=== PATIENT | male | born 1955 | race Asian ===

== ENCOUNTER 2022-08-12 03:48 | Emergency (ER) | payer OTHER ==
[~2022-08-12] VITALS: Ht 157.5 cm; Wt 60.0 kg
[2022-08-12 04:17] VITALS: BP 126/86
[2022-08-12] MEDS ORDERED: AMOX-277 PO (05:09)
[2022-08-12] MEDS ORDERED: PRED20TA2 PO (05:09)
[2022-08-12] MEDS ORDERED: cefTRIAXone SOD 1,000 MG VL IM ONE (05:15)
== END 2022-08-12 06:05 | disposition home or self-care (01) ==
LOC: ER 03:48
DX: J20.9 Acute bronchitis, unspecified (principal); E78.5 Hyperlipidemia, unspecified; I10 Essential (primary) hypertension; Z20.822 Contact with and (suspected) exposure to COVID-19
CPT/HCPCS: 36415; 71045; 87426; 87804; 96372; 99284; J0696

== ENCOUNTER 2022-09-16 21:07 | Emergency (ER) | payer OTHER ==
[~2022-09-16] VITALS: Ht 170.2 cm; Wt 66.1 kg
[~2022-09-16 21:07] MED LIST: AMOX-277 PO; PRED20TA2 PO
[2022-09-17] MEDS ORDERED: OMEP20TA PO (00:41)
[2022-09-17] MEDS ORDERED: MAALOX PLUS or MAALOX 30 ML PO ONE (00:45)
[2022-09-17] MEDS ORDERED: LIDOCAINE VISCOUS 2% 15ML UD PO ONE (00:45)
[2022-09-17 01:15] VITALS: BP 129/90
== END 2022-09-17 01:20 | disposition home or self-care (01) ==
LOC: ER 21:07
DX: K21.00 Gastro-esophageal reflux disease with esophagitis, without bleeding (principal); E78.5 Hyperlipidemia, unspecified; I10 Essential (primary) hypertension; Z88.1 Allergy status to other antibiotic agents

== ENCOUNTER 2024-07-05 08:56 | Emergency (ER) | payer OTHER ==
[~2024-07-05] VITALS: Ht 170.2 cm; Wt 65.0 kg
[~2024-07-05 08:56] MED LIST changes: -AMOX-277 PO; +AMOX875T4 PO; +OMEP20TA PO
--- NOTE | 2024-07-05 09:33 | DVH ---
CHEST RADIOGRAPH Indication: cough Technique: Frontal and lateral view of the chest was obtained Comparison: None FINDINGS: Lines and Tubes: None Lungs: Clear Pleura: No effusion. No pneumothorax. Cardiomediastinal contours: Unremarkable Bones: Unremarkable IMPRESSION: No evidence of acute disease.
[2024-07-05 10:26] VITALS: BP 106/79; PULSE 86; RESP 20; TEMP 97; O2SAT 93
[2024-07-05 11:04] LABS: COVID19 ANTIGEN SOFIA FIA NEGATIVE (NEGATIVE)
[2024-07-05 11:05] LABS: Rapid Influenza A Positive (Negative); Rapid Influenza B Negative (Negative)
[2024-07-05] MEDS ORDERED: OSEL75CA5 PO (11:35)
[2024-07-05] MEDS ORDERED: PROM1SOL4 PO (11:35)
[2024-07-05] MEDS ORDERED: ACET500T58 PO (11:35)
[2024-07-05] MEDS ORDERED: IBUP-1456 PO (11:35)
--- NOTE | 2024-07-05 11:35 | ED.PDOC ---
History of Present Illness HPI Comments 69-year-old male with a history of hypertension, hyperlipidemia, enlarged prostate presents with for same symptoms of myalgia, runny nose, nonproductive cough for two days. Denies persistent chest pain, shortness of breath, leg swelling Denies history of asthma nor any breathing conditions Denies history of pneumonia Denies recent international travel parents Chief Complaint: Flu like Time Seen by MD: 09:11 Past Medical History PAST MEDICAL HISTORY: High Lipids, HTN Surgical History: Denies all surgeries Family History Family History: Reviewed,noncontributory to illness Social History Smoker: Non-Smoker Alcohol: Denies ETOH Use Drugs: Denies Drug Use Lives In: Home X-Ray, Labs, Meds, VS Vital Signs Date Time Temp Pulse Resp B/P (MAP) Pulse Ox O2 Delivery O2 Flow Rate FiO2 07/05/24 10:26 86 20 93 Room Air 07/05/24 10:26 97.0 86 20 106/79 (88) 93 97.0 07/05/24 09:09 97.6 57 87 135/65 (88) 98 Lab Test 07/05/24 09:18 Range/Units Influenza Type A Antigen Positive Negative Influenza Type B Antigen Negative Negative SARS-CoV-2 Antigen (Rapid) Negative NEGATIVE Departure 1 Departure Time of Disposition: 11:33 Impression: Primary Impression: Influenza A Disposition: 01 HOME / SELF CARE / HOMELESS Condition: Stable e-Prescriptions Promethazine-Dm (Promethazine Dm 6.25-15 mg/5Ml) 1 Hui Hui 5 ML PO TID PRN for 10 Days, #150 ML 0 Refills Prov: DASH ROSALES BATTERY TECHNICIAN 07/05/24 Ibuprofen (Ibuprofen) 800 Mg Tab 1 TAB PO TID for 10 Days, #30 TAB 0 Refills Prov: DASH ROSALES BATTERY TECHNICIAN 07/05/24 Acetaminophen (Acetaminophen) 500 Mg Tab 500 MG PO Q4HP PRN for 10 Days, #50 TAB 0 Refills Prov: DASH ROSALES BATTERY TECHNICIAN 07/05/24 Oseltamivir Phosphate (Tamiflu) 75 Mg Cap 1 CAP PO BID for 5 Days, #10 CAP 0 Refills Prov: DASH ROSALES NP 07/05/24 Discharged With: Self DASH ROSALES NP Jul 05, 2024 11:35
== END 2024-07-05 12:36 | disposition home or self-care (01) ==
LOC: ER 08:56
DX: J10.1 Influenza due to other identified influenza virus with other respiratory manifestations (principal); E78.5 Hyperlipidemia, unspecified; I10 Essential (primary) hypertension; Z20.822 Contact with and (suspected) exposure to COVID-19
CPT/HCPCS: 36415; 71046; 87426; 87804